=== PATIENT | male | born 1975 | race Caucasian/White ===

== ENCOUNTER 2018-09-04 07:59 | Emergency (ER) | payer OTHER ==
[~2018-09-04] VITALS: Ht 182.9 cm; Wt 88.5 kg
[~2018-09-04 07:59] MED LIST: ACET325; AMBIEN CR; DIAZ10 PO; DULO30; FENT50TP; HYDR1TAB94 PO; Levitra20 MG PO; METO100ER PO; NAPR220; OXYACE5T PO; OXYC5; RXSULTRIDS PO; SAVELLA50 MG PO; SULTRIDS PO; TRAMADOL HCL E200 M1 PO; TRAZ100 PO
[2018-09-04] MEDS ORDERED: TRAM50 PO (08:24)
[2018-09-04] MEDS ORDERED: TRAZ50 PO (08:25)
[2018-09-04] MEDS ORDERED: SAVELLA50 MG PO (08:25)
[2018-09-04] MEDS ORDERED: MORP15ER PO (08:25)
[2018-09-04 09:22] LABS: BASOPHILS ABSOLUTE AUTO 0.01 K/mm3 (0.00-0.23); BASOPHILS PERCENT AUTO 0 % (0-2); EOSINOPHILS ABSOLUTE AUTO 0.09 K/mm3 (0.00-0.68); EOSINOPHILS PERCENT AUTO 2 % (0-6); Hematocrit 44.4 % (37.0-53.0); IMMATURE GRAN ABSOLUTE AUTO 0.01 K/mm3 (0.00-0.10); IMMATURE GRAN PERCENT AUTO 0 % (0-1); LYMPHOCYTES ABSOLUTE AUTO 1.65 K/mm3 (0.84-5.20); LYMPHOCYTES PERCENT AUTO 41 % (21-46); MONOCYTES ABSOLUTE AUTO 0.25 K/mm3 (0.16-1.47); MONOCYTES PERCENT AUTO 6 % (4-13); Mean Corpuscular HGB 30.5 pg (26.0-34.0); Mean Corpuscular HGB Conc 33.8 g/dL (31.5-36.5); Mean Corpuscular Volume 90 fL (80-100); Mean Platelet Volume 9.2 fL (9.1-12.4); NEUTROPHILS ABSOLUTE AUTO 2.04 K/mm3 (1.96-9.15); NEUTROPHILS PERCENT AUTO 51 % (41-73); Platelet Count 274 K/mm3 (150-400); RDW Coefficient Variation 11.9 % (11.7-14.2); RDW Standard Deviation 39.1 fL (35.1-46.3); Red Blood Cell Count 4.92 M/mm3 (4.30-5.90); White Blood Cell Count 4.05 K/mm3 (4.00-11.30)
[2018-09-04 09:45] LABS: Alanine Aminotransfer (ALT/SGP 20 U/L (12-78); Albumin, Blood 4.1 g/dL (3.4-5.0); Albumin/Globulin Ratio 1.2 (0.8-1.8); Alk Phos 54 U/L (50-136); Anion Gap 7 mmol/L (6-16); Aspartate Aminotrans (AST/SGOT 17 U/L (12-37); Bilirubin, Total 0.9 mg/dL (0.1-1.0); Blood Urea Nitrogen 12 mg/dL (8-24); Bun/Creatinine Ratio 11.3 (12.0-20.0); CO2, Blood 30 mmol/L (21-32); Calcium, Blood 8.9 mg/dL (8.5-10.1); Chloride, Blood 104 mmol/L (98-108); Creatinine, Blood 1.06 mg/dL (0.60-1.20); Globulin, Blood 3.5 g/dL (2.2-4.0); Glomerular Filtration Rate >60 (60-); Glucose, Blood 89 mg/dL (70-99); Potassium, Blood 3.5 mmol/L (3.5-5.5); Sodium, Blood 141 mmol/L (136-145); Total Protein, Blood 7.6 g/dL (6.4-8.2)
== END 2018-09-04 13:00 | disposition home or self-care (01) ==
LOC: ER 07:59
PROVIDERS: Physician Assistant
DX: S06.9X9A Unspecified intracranial injury with loss of consciousness of unspecified duration, initial encounter (principal); S01.81XA Laceration without foreign body of other part of head, initial encounter; R55 Syncope and collapse; K04.7 Periapical abscess without sinus; W17.89XA Other fall from one level to another, initial encounter; Z79.899 Other long term (current) drug therapy; Z79.891 Long term (current) use of opiate analgesic
CPT/HCPCS: 12011; 36415; 70450; 80053; 85025; 93005; 93010; 96374-59; 99284-25; J3010

== ENCOUNTER 2018-11-10 09:45 | Day surgery (SDC) | payer OTHER ==
[2018-11-06 14:16] LABS: BASOPHILS ABSOLUTE AUTO 0.01 K/mm3 (0.00-0.23); BASOPHILS PERCENT AUTO 0 % (0-2); EOSINOPHILS ABSOLUTE AUTO 0.05 K/mm3 (0.00-0.68); EOSINOPHILS PERCENT AUTO 1 % (0-6); Hematocrit 46.7 % (37.0-53.0); Hemoglobin 15.7 g/dL (13.5-17.5); IMMATURE GRAN ABSOLUTE AUTO 0.01 K/mm3 (0.00-0.10); IMMATURE GRAN PERCENT AUTO 0 % (0-1); LYMPHOCYTES ABSOLUTE AUTO 1.36 K/mm3 (0.84-5.20); LYMPHOCYTES PERCENT AUTO 25 % (21-46); MONOCYTES ABSOLUTE AUTO 0.32 K/mm3 (0.16-1.47); MONOCYTES PERCENT AUTO 6 % (4-13); Mean Corpuscular HGB 30.3 pg (26.0-34.0); Mean Corpuscular HGB Conc 33.6 g/dL (31.5-36.5); Mean Corpuscular Volume 90 fL (80-100); Mean Platelet Volume 9.6 fL (9.1-12.4); NEUTROPHILS PERCENT AUTO 68 % (41-73); Platelet Count 314 K/mm3 (150-400); RDW Coefficient Variation 11.8 % (11.7-14.2); RDW Standard Deviation 38.5 fL (35.1-46.3); Red Blood Cell Count 5.19 M/mm3 (4.30-5.90); White Blood Cell Count 5.55 K/mm3 (4.00-11.30)
[2018-11-06 14:34] LABS: Anion Gap 9 mmol/L (6-16); Blood Urea Nitrogen 12 mg/dL (8-24); Bun/Creatinine Ratio 12.2 (12.0-20.0); CO2, Blood 27 mmol/L (21-32); Calcium, Blood 9.5 mg/dL (8.5-10.1); Chloride, Blood 103 mmol/L (98-108); Creatinine, Blood 0.98 mg/dL (0.60-1.20); Glomerular Filtration Rate >60 (60-); Glucose, Blood 107 mg/dL (70-99); Potassium, Blood 3.8 mmol/L (3.5-5.5); Sodium, Blood 139 mmol/L (136-145)
[~2018-11-10] VITALS: Ht 182.9 cm; Wt 88.4 kg
[~2018-11-10 09:45] MED LIST changes: +MORP15ER PO; +TRAM50 PO; +TRAZ50 PO
--- NOTE | 2018-11-10 10:30 | NUR ---
Ambulatory in Day Surgery, utilizes a cane to ambulate. Surgical site prepped with 2% Chlorhexidine cloth wipe. History, Chart, Medications and Allergies reviewed before start of procedure. Lungs clear T/O to Auscultation. Patient confirms NPO status and agrees with scheduled surgery. Pre-Op teaching done. Pt verbalizes understanding. Patient States Post-Procedure ride home has been arranged. Patient reports completing Chlorhexadine shower X2 prior to admission to hospital. , Rosalie, at bedside.
--- NOTE | 2018-11-10 13:51 | NUR ---
TOLERATING PO INTAKE. STARTING TO HAVE PAIN TO KNEE. PERCOCET TABS X2 GIVEN PER ORDERS TO TREAT FOR PAIN. CONTINUE TO MONITOR.
--- NOTE | 2018-11-10 14:35 | NUR ---
REPOSTION IN BED TO BACK AND INCREASE HEAD OF BED; TOLERATED WELL. AWAIT FOR PT TO EVALUATE. PT STATES"YES" TO FEELING BETTER.
--- NOTE | 2018-11-10 16:08 | NUR ---
1415 CALLED [facility] TO REQUEST FOR PHYSICAL THERAPY EVALUATION/TX ORDER BEFORE PATIENT DISCHARGE HOME; ORDER RECEIVED. 1440 PHYSICAL THERAPY HERE AT BEDSIDE TO EVALUATE. PER PT, REQUESTING FOR FRONT WHEEL WALKER AND WC WITH ELEVATED LEG REST; CALLED TO [facility]. 1500 PHYSICAL THERAPY COMPLETED EVALUATION; PT DID WELL USING A FRONT WHEEL WALKER. 1515 CALLED BACK TO [facility] WITH STATUS UPDATE AND WILL PROVIDE RX FOR WC WITH ELEVATED LEG REST; FAMILY TO WINDOW AND SIDING [employer]FT[employer] RX TOMORROW. 1537 DISCHARGE HOME; STABLE. Discharge instructions reviewed with patient. Patient verbalizes understanding. Copy given to patient to take home. Dressing to procedure site clean, dry, intact with no visible drainage, swelling, erythema or bruising noted. Patient States Post-Procedure ride home has been arranged. Discharged via wheelchair to private car for ride home.
--- NOTE | 2018-11-12 13:53 | NUR ---
11/12/18 1353 Symone Holland VERIFICATIONS: EDIT CHART.
== END 2018-11-10 15:37 | disposition home or self-care (01) ==
LOC: ORSCMMR 09:45 → ORD 09:45 → ORSCMMR 09:46 → MOI MRI 10:00 → ORD 10:00 → MOI MRI 11:00 → ORD 15:37
PROVIDERS: Orthopaedic Surgery
PROC: 0SQC4ZZ Repair Right Knee Joint, Percutaneous Endoscopic Approach (ICD-10-PCS; principal; 2018-11-10 11:00)
DX: S83.241A Other tear of medial meniscus, current injury, right knee, initial encounter (principal); Z01.818 Encounter for other preprocedural examination; M23.41 Loose body in knee, right knee; Z79.899 Other long term (current) drug therapy
CPT/HCPCS: 36415; 80048; 85025; 97162; C1713; J0171; J0690; J1885; J2250; J2704; J3010; J7120

== ENCOUNTER 2019-02-26 22:03 | Emergency (ER) | payer OTHER ==
[~2019-02-26] VITALS: Ht 182.9 cm; Wt 88.5 kg
[2019-02-27] MEDS ORDERED: Polytrim Eye Dr10 ML BOTHEYES (00:07)
== END 2019-02-27 00:38 | disposition home or self-care (01) ==
LOC: ER 22:03
DX: S05.01XA Injury of conjunctiva and corneal abrasion without foreign body, right eye, initial encounter (principal); Z88.2 Allergy status to sulfonamides; Z88.8 Allergy status to other drugs, medicaments and biological substances; W45.8XXA Other foreign body or object entering through skin, initial encounter
CPT/HCPCS: 99283

== ENCOUNTER 2019-08-10 08:40 | Day surgery (SDC) | payer OTHER ==
[~2019-08-10] VITALS: Ht 182.9 cm; Wt 90.8 kg
[~2019-08-10 08:40] MED LIST changes: +Polytrim Eye Dr10 ML BOTHEYES; +SILDENAFIL20 MG PO; +TRAMADOL HCL E200 MG PO; +TRAZ150T57 PO
--- NOTE | 2019-08-10 11:52 | NUR ---
08/10/19 1152 Omar Perez GAVE FLUID BOLUS FOR LOW BP, PER DR CAO. BP LUIS TO 126/55. PT STABLE THROUGHOUT.
== END 2019-08-10 12:55 | disposition home or self-care (01) ==
LOC: ORSCSDS 08:40
PROVIDERS: Orthopaedic Surgery
PROC: 0SQC4ZZ Repair Right Knee Joint, Percutaneous Endoscopic Approach (ICD-10-PCS; principal; 2019-08-10 10:00)
DX: S83.241A Other tear of medial meniscus, current injury, right knee, initial encounter (principal); M22.41 Chondromalacia patellae, right knee; M17.11 Unilateral primary osteoarthritis, right knee; G62.9 Polyneuropathy, unspecified; Z79.899 Other long term (current) drug therapy
CPT/HCPCS: J0171; J0690; J1100; J2250; J2405; J2704; J2795; J3010; J7120

== ENCOUNTER → 2020-05-15 | Outpatient (CLI) | payer OTHER ==
[2020-05-15 15:58] LABS: Body Fluid Crystals NEG (NEGATIVE)
[2020-05-15 16:25] LABS: WBC Count, Synovial Fluid 291 /mm3 (0-180)
[2020-05-15 16:47] LABS: RBC Count, Synovial Fluid 265 /mm3 (0-0)
[2020-05-15 16:48] LABS: Appearance, Synovial Fluid Clear (Clear); Color, Synovial Fluid Yellow (None-P Yel)
[2020-05-15 17:10] LABS: Lymphs, Synovial Fluid 35 % (0-15); Monocytes/Macrophages, Synovia 63 % (0-65); Neutrophils, Synovial Fluid 2 % (0-24)
== END | disposition home or self-care (01) ==
LOC: LAB SHORT 15:33 → LAB 15:33
PROVIDERS: Orthopaedic Surgery
DX: M25.561 Pain in right knee (principal)
CPT/HCPCS: 87070; 87205; 89051; 89060

== ENCOUNTER → 2021-02-14 | Outpatient (CLI) | payer OTHER | END | disposition home or self-care (01) | LOC: LAB SHORT 08:34 | DX: H93.90 Unspecified disorder of ear, unspecified ear (principal) | CPT/HCPCS: 88305 ==

== ENCOUNTER → 2022-06-19 | Outpatient (CLI) | payer OTHER | END | disposition home or self-care (01) | DX: Z51.81 Encounter for therapeutic drug level monitoring (principal); Z79.899 Other long term (current) drug therapy ==